=== PATIENT | male | born 1965 | race Caucasian/White ===

== ENCOUNTER 2018-10-22 09:57 | Day surgery (SDC) | payer OTHER ==
[2018-10-22] MEDS ORDERED: MIDAZOLAM 1 MG/ML 2 ML INJ ×2 (12:13→12:37)
[2018-10-22] MEDS ORDERED: MEPERIDINE 50 MG INJ (12:35)
[2018-10-22] MEDS ORDERED: GLYCOPYRROLATE 0.4 MG INJ (15:23)
== END 2018-10-22 13:35 | disposition home or self-care (01) ==
LOC: GIL 09:57
DX: Z12.11 Encounter for screening for malignant neoplasm of colon (principal); D12.5 Benign neoplasm of sigmoid colon; K64.8 Other hemorrhoids
CPT/HCPCS: 45380; 88305